=== PATIENT | female | born 2000 | race Caucasian/White ===

== ENCOUNTER 2020-12-01 11:59 | Outpatient (REF) | payer MEDICAID, SELFPAY | END 2020-12-01 12:00 | disposition home or self-care (01) | LOC: HO.LAB 11:59 | PROVIDERS: Visit Provider Internal Medicine | DX: Z20.822 Contact with and (suspected) exposure to COVID-19 (principal) | CPT/HCPCS: 36415; C9803; U0003; U0005 ==

== ENCOUNTER 2020-12-12 12:52 | Emergency (ER) | payer MEDICAID, SELFPAY ==
--- NOTE | 2020-12-12 13:06 | ED_ITS ---
HPI - Medical Clearance General Chief complaint: Medical Clearance Stated complaint: Medical Clearance Time Seen by Provider: 12/12/20 13:06 Source: patient Mode of arrival: ambulatory Limitations: no limitations History of Present Illness HPI Narrative: Otherwise healthy 20-year-old female presenting seeking know to return to work. She states she had a routine COVID test on December 01 were she was positive those asymptomatic she was put on 14 day self quarantine and she is due to return tomorrow and job requires note to return. She states during the duration of time she has not had any COVID symptoms. She has been quarantine and has not been in contact with anybody this sick or recent travel. complaint: medical clearance requested Associated Symptoms: denies other symptoms Treatments Prior to Arrival: none Related Information Allergies Allergy/AdvReac Type Severity Reaction Status Date / Time No Known Allergies Allergy Unverified 06/25/20 16:58 Review of Systems Review of Systems: Twelve point review of system negative. Yes all other systems are reviewed and are negative [facility] Past Medical History Medical History No known health problems Social History Social History Advance Directives: Yes Advance Directives Information Provided: No Advance Directives on File: No Physical Exam Vital Signs: Vital Signs: Reviewed Const: General: cooperative and healthy appearing; No acute distress or intoxicated appearing Nutritional Appearance: average body habitus Orientation/consciousness: patient oriented x3 HENMT: Head: Yes normal to inspection Ears: hearing grossly normal bilaterally Eyes: General: appearance normal, both eyes and all related structures Visual Colvin: normal visual colvin by confrontation Neck: Neck: Yes normal visual inspection, No positive Brudzinski's sign, No positive Kernig's sign and No tender Thyroid: Thyroid normal Chest: Chest palpation & inspection: normal inspection of the chest Resp: Effort & Inspection: normal respiratory effort Cardio: Jugular venous distension: no JVD : General: Yes no CVA tenderness Back/Spine/Pelvis: Back: no CVA tenderness Skin: General skin exam: no rashes or lesions noted Neuro: General: patient oriented x3 Extrem: General: Yes normal to inspection Course Course Course Narrative: She is a document from work requiring clearance this was signed as well as work note was provided to return to work tomorrow. She unfortunately does not have any primary care doctor in the future referred to [facility]. Discharge Plan Discharge Clinical Impression: Normal exam Patient Disposition: Home, Self-Care Instructions: Normal Exam (ED) Additional Instructions: May return to work. Referrals: ED Physician,Generic [Emergency Provider] - 2 weeks (Her primary care doctor as needed) Stand Alone Forms: Work/School Release
[2020-12-12 13:15] VITALS: BP 98/54; PULSE 85; RESP 18; TEMP 37.1; O2SAT 98; BMI 21.7
== END 2020-12-12 13:24 | disposition home or self-care (01) ==
PROVIDERS: Emergency Provider Emergency Medicine
DX: Z02.79 Encounter for issue of other medical certificate (principal); Z86.16 Personal history of COVID-19
CPT/HCPCS: 99282; 99283